=== PATIENT | male | born 1940 | race African-American/Black ===

== ENCOUNTER 2025-03-29 13:43 | Outpatient (AMB) | payer OTHER, MEDICARE, SELFPAY ==
--- NOTE | 2025-03-29 14:33 | A.OFFVIS_ITS ---
Intake Visit Reasons: ENP-Confusion Medication List - Last Reconciled 03/29/25 by Todd Fox MD docusate sodium 100 mg PO DAILY famotidine 20 mg PO BEDTIME fluticasone propionate 50 mcg/actuation (Flonase Allergy Relief) 1 spray intranasal DAILY ibuprofen 200 mg PO Q6H PRN HPI Comments Details: 85 yr generally healthy man with two episodes of transient memory loss and confusion lasting hours on 12/17/24 and 02/11/25. He woke up somewhat confused at 06:00 wanting to go to [facility] in the little later went to [employer] [place] some medicine from a pharmacy he drove then drove back and then had no recall that he had gone to the pharmacy. He also kept repeating himself. He acted somewhat spacey and then within 24 hours he was back to normal. He was seen in the emergency room had a negative CT scan of the head except for mild small bilateral hygromas and some atrophy which was age-related. 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 [facility] Medical History (Updated 03/29/25 @ 14:33 by Todd Fox MD) Fatty liver GERD (gastroesophageal reflux disease) Aortic regurgitation Review of Systems ENT Reports hearing loss Neuro Details: Two episodes of transient short-term memory loss and confusion Reports confusion Psych Reports confusion Physical Exam Const General: confusion Orientation/consciousness: confusion Neuro Other: ?Mini Mental Status Exam Level of Consciousness:?Alert.? Orientation:?Knows correct year, month, date, day and season.?Knows correct city, county and state. Knows correct location and floor.? Registration:?Able to register 3 objects.? Attention:?Serial 7's performed accurately.? Recall:?Able to recall 3 out of 3 objects.? Language:?Normal spontaneous speech, fluency, repetition, naming, comprehension, reading, and writing.? Total Score:?.? Neurological Abnormal neurological findings:??none.? Mental Status:?Alert and oriented X 3.?Normal attention, orientation, memory, and affect.? Cranial Nerves:?Pupils are equal, round and reactive to light. Fundoscopy shows normal disc bilaterally. External occular muscles are intact. Visual haque are full, no ptosis. Face is symmetrical, no facial weakness or droop. Facial sensations are normal. Tongue protrudes in midline. Palate elevates symmetrically. Shoulder shrugging is normal.? Motor Examination:?Normal muscle tone, bulk and strength.?No atrophy or fasciculations.?No drift of the extended upper extremities.?Deep tendon reflexes are 2+.?Plantars are flexor.? Motor Strength:? Proximal Muscles (out of 5):?5 Distal Muscles (out of 5):?5 Neck Flexors (out of 5):?5 Neck Extensors (out of 5):?5 Deltoid (out of 5):?5 Biceps (out of 5):?5 Triceps (out of 5):?5 Serratus Anterior (out of 5):?5 Wrist Extensors (out of 5):?5 APB (out of 5):?5 Finger Spread (out of 5):?5 Ileopsoas (out of 5):?5 Quadriceps (out of 5):?5 Hamstrings (out of 5):?5 Tibialis Anterior (out of 5):?5 Peronei (out of 5):?5 EDB (out of 5):?5 Gastrocnemius (out of 5):?5 Straight Leg Raising:?90 degrees.? Sensory Exam:?Normal light touch, temperature, pinprick, vibration and joint-position sensations.?Rhomberg sign is absent.? Coordination:?No ataxia,?no titubation,?wawkcy-[id number]-pvdo, pcxd-[id number]-rmmb test, and rapid alternating movements were normal.? Gait Exam:?Within normal limits.? Cerebellar Signs:?Umhmzy-nd-kuta and tvbf-ic-ngzb is normal.?No dysdiadochokinesia.? Extrapyramidal System:?No tremor or?rigidity, normal facial expressions.?No bradykinesia. No bradyphrenia. Normal arm swing and posture. No propulsion or retropulsion.? Speech:?Normal,?no dysphasia or dysarthria.? General Examination GENERAL APPEARANCE:??normal,?in no acute distress?,?normal,?in no acute distress.? HEAD:??normocephalic,?atraumatic.? EYES:??sclera non-icteric,?conjunctiva clear.? EARS:??auditory canal clear,?tympanic membrane intact, clear.? NOSE:??no lesions.? ORAL CAVITY:??gums normal,?mucosa moist,?no lesions.? THROAT:??clear.? NECK/THYROID:??no cervical lymphadenopathy,?thyroid normal,?neck supple, full range of motion,?no carotid bruit.? SKIN:??no rashes,?no significant birthmarks.? HEART:??S1, S2 normal,?no murmurs?,?S1, S2 normal,?no murmurs.? LUNGS:??clear anteriorly and posteriorly?,?clear anteriorly and posteriorly.? CHEST:??no gross rib deformity,?clear to auscultation.? BACK:??normal exam of spine.? MUSCULOSKELETAL:??normal.? EXTREMITIES:??no edema?,?no edema.? PERIPHERAL PULSES:??normal.? PSYCH:??alert, oriented,?cognitive function intact,?cooperative with exam?,?alert, oriented,?cognitive function intact,?cooperative with exam.? General: confusion Assessment & Plan Assessment & Plan (1) Transient global amnesia: Code(s): G45.4 - Transient global amnesia Category: Medical Plan MRI brain , EEG Orders: Orders MR head/brain wo con 3 Weeks G45.4 - Transient global amnesia EEG electroencephalogram Today G45.4 - Transient global amnesia Coding Level of Care Code New Pt Level 5 (63145) Diagnoses Transient global amnesia G45.4
--- OUTSIDE RECORDS SUMMARY | 2025-03-29 15:02 | XMS_ITS ---
Author Name [facility] Organization Unknown Care Team Organization Name Specialty Phone Email Start Date End Da te [facility] 02/16/2025 [facility] 05/07/2022 02/16/2024
--- OUTSIDE RECORDS SUMMARY | 2025-03-29 15:02 | XMS_ITS | Clinical Summary ---
Author Organization [address] [facility] Address [address] [place] [address] Phone Care Team Providers Care Cyber Defense Forensics Analyst Name Role Phone Meg Monet MD Primary Care Provider [phone] Allergies Active Allergy Reactions Criticality Noted Date Comments Oxycodone Other 05/11/2021 Constipation Pollen Extracts 07/24/2015 Tramadol Itching 04/19/2021 Medications fluticasone propionate (FLONASE) 50 mcg/actuation nasal spray SPRAY 2 SPRAYS BY NASAL ROUTE DAILY 10/22/2022 Active ibuprofen (ADVIL,MOTRIN) 200 mg tablet Take 200 mg by mouth every 6 hours as needed. Active DOCUSATE SODIUM ORAL Take by mouth daily. Active phenyleph-shark myranda oil-mo-pet ointment Insert into the rectum 3 times daily. 03/18/2023 Active famotidine (PEPCID) 20 mg tablet TAKE 1 TABLET BY MOUTH TWICE DAILY 180 tablet 06/18/2024 Active amoxicillin-cla vulanate (AUGMENTIN) 875-125 mg per tablet Take 1 tablet by mouth 2 (two) times a day for 7 days. 14 each 03/21/2025 Active Problems Problem Noted Date Diagnosed Date CKD (chronic kidney disease) stage 2, GFR 60-89 ml/min 07/13/2019 Abnormal TSH 10/18/2014 Overview (03/25/2024): normal T4 Hyperglycemia 10/18/2014 Syncope 04/14/2014 Overview (03/25/2024): Cardiac study (-), CT (-), believed to be vasovagal with some level of dehydration Aortic regurgitation 08/13/2013 Overview (03/25/2024): mild to moderarte on ECHO for evaluation for syncope CKD (chronic kidney disease) stage 3, GFR 30-59 ml/min ([facility] V24, [facility] V28) 04/09/2013 Overview (03/25/2024): GFR< 60 / 58 on04/02/13 Diverticulitis of colon without hemorrhage 04/09 Overview (03/25/2024): Colonoscopy 08/26/12 Fatty liver 06/05/2012 Overview (03/25/2024): On imaging studies during hospitalization for atypical chest pain with nausea vomiting in [place] Leukopenia 10/29/2010 Seasonal allergies 12/12/2009 Benign neoplasm of colon 09/02/2005 Overview (03/25/2024): Tubular adenoma in 2009 External hemorrhoids 09/02/2005 Overview (03/25/2024): IMO update Esophageal reflux 09/02/2005 Peyronie's disease 09/02/2005 Tinnitus 09/02/2005 Overview (03/25/2024): Bilateral, left>right, on going, CT brain (-) 05/2013 for evaluation of syncope IMO update Encounters Date Type Department Care Team Description 03/21/2025 10:00 AM EDT Office Visit [facility] [address] [place] [place] [address] Santi Rogel, BANDER OPERATOR Acute otitis media, unspecified otitis media type (Primary Dx) 02/24/2025 Telephone Adult Medicine [address] [phone] Meg Monet MD 01/04/2025 Telephone Adult Medicine [address] [phone] Rosangela Ash NP 12/30/2024 8:30 AM EDT Office Visit Adult Medicine [address] [phone] Rosangela Ash NP Confusion (Primary Dx); Other hereditary cerebrovascular disease; Memory changes; Encounter for examination following treatment at hospital; Stage 3 chronic kidney disease, unspecified whether stage 3a or 3b CKD ([facility] V24, [facility] V28); Encounter for screening for cardiovascular disorders from Last 3 Months Immunizations Immunization Administration Dates Next Due Influenza Quadravalent, 0.5m l (Fluzone High-dose) 65yo and older 03/02/2024 Influenza Quadravalent, MDCK , 0.5ml, preservative free (Flucelvax) 6mo and older 05/20/2018 Influenza Quadravalent, MDCK , 0.5ml, with preservative (Flucelvax) 6mo and older 06/02/2017 Influenza trivalent, 0.5mL ( Fluzone High-dose) 65yo and older 04/19/2021 Influenza trivalent, with pr eservative (Fluzone; Afluria) 6mo and older 04/25/2016,04/14/2014,04/02/2013,05/01,04/27/2010,04/04/2008 Moderna SARS-CoV-2 COVID-19, mRNA, LNP-S, preservative free 11/04/2022,04/29/2022 Pfizer SARS-CoV-2 COVID-19, mRNA, LNP-S, preservative free 03/02/2024 Pneumococcal polysaccharide 23 valent (Pneumovax 23) 2yo and older 11/07/2008 RSV, bivalent, protein subun it RSVpreF, 0.5mL, Preservative Free (ABRYSVO) 60yo and older or 32 through 36 wks of 03/02/2024 Td Tetanus diptheria (Tdvax) 7yo and older 11/07/2008 Surgical History Surgery Date Site/Laterality Comments COLONOSCOPY 2005 PROCEDURE: HISTORICAL COLONOSCOPY; COMMENT: follow up 3 years; colonic adenoma COLONOSCOPY 06/20/09 PROCEDURE: [place] COLONOSCOPY STOMA DX INCLUDING COLLJ SPEC SPX; COMMENT: adenoma and hemorrhoids; repeat in three years COLONOSCOPY 08/26/12 PROCEDURE: [place] COLONOSCOPY STOMA DX INCLUDING COLLJ SPEC SPX; COMMENT: tics; repeat in 5 yrs COLONOSCOPY W/ BIOPSIES 02/27/2018 PROCEDURE: [place] COLONOSCOPY W/BIOPSY SINGLE/MULTIPLE; COMMENT: adenma and hyperplastic polyps; repeat in 5 years. Medical History Medical History Date Comments Peyronie's disease 09/02/2005 DX:Peyronie's disease Unspecified tinnitus 09/02/2005 DX:Unspecif ied tinnitus Benign neoplasm of colon 09/02/2005 DX:Jonas gn neoplasm of colon; COMMENT: 2000 Esophageal reflux 09/02/2005 DX:Esophageal reflux External hemorrhoids without mention of complication 09/02/2005 DX:External hemorrhoids with out mention of complication Fatty liver 06/05/2012 DX:Fatty liver Aortic regurgitation 08/13/2013 DX:Aortic r egurgitation Syncope 04/14/2014 DX:Syncope; COMM ENT: Cardiac study (-), CT (-), believed to be vasovagal with some level of dehydration Hyperglycemia 10/18/2014 DX:Hyperglycemia Family History Medical History Relation Name Comments No Known Problems Aunt No Known Problems Brother Other: at age 88 Father No Known Problems Maternal Grandfather No Known Problems Maternal Grandmother Heart attack Mother [place] at age 67 No Known Problems Other No Known Problems Paternal Grandfather No Known Problems Paternal Grandmother No Known Problems Sister 1 No Known Problems Sister 2 No Known Problems Sister 3 No Known Problems Sister 4 Other: lymph cancer Sister 5 Other: gastric cancer Sister 6 Blindness Uncle Cataracts Neg Hx Glaucoma Neg Hx Macular degeneration Neg Hx Strabismus Neg Hx Relation Name Status Comments Aunt Brother Alive x1 Father DIABETES with a mputation Maternal Grandfather Maternal Grandmother Mother MYOCARDIAL INFA RCTION, DIABETES Other Paternal Grandfather Paternal Grandmother Sister 1 LYMPHOMA Sister 2 LYMPHOMA Sister 3 GASTRIC CANCER Sister 4 Alive x4; 1 with DMII Sister 5 Sister 6 Uncle Social History Tobacco Use Types Packs/Day Years Used Date Smoking Tobacco: Former Cigarettes 2 8.2 0 06/30/1962 - 09/02/1970 Smokeless Tobacco: Never Tobacco Cessation:Counseling Given: Not Answered Alcohol Use Standard Drinks/Week Comments Yes 0 (1 standard drink = 0.6 oz pur e alcohol) Housing Instability Answer Date Recorde d Are you worried that in the next 2 months you may not have stable housing? No 12/29/2024 Food Access & Nutrition Answer Date Rec orded Do you have access to a vari ety of food including fruits and vegetables? Yes 12/29/2024 Access to Healthcare Answer Date Record ed Within the last 3 months, ho w many times did you visit the emergency department for your medical care? 1 12/29/2024 Health Literacy Answer Date Recorded How often do you need to hav e someone help you when you read instructions, pamphlets, or other written material from your doctor or pharmacy? Rarely 12/29/2024 Caregiver: How often do you need to have someone help you when you read instructions, pamphlets, or other written material from your doctor or pharmacy? Not on file 12/29/2024 Financial Risk Answer Date Recorded How hard is it for you to pa y for the very basics like food, housing, medical care, and air conditioning / heating? Not very hard 12/29/2024 Transportation Answer Date Recorded Has the lack of transportati on kept you from meetings, work, or from getting things needed for daily living? No Has the lack of transportati on kept you from medical appointments or from getting medications? No 12/29/2024 Social Isolation Answer Date Recorded How often do you feel lonely or isolated from th ose around you? Rarely 12/29/2024 Food Risk Answer Date Recorded Within the past 12 months we worried whether our food would run out before we got money to buy more. Never true 12/29/2024 Within the past 12 months th e food we bought just didn't last and we didn't have money to get more. Never true 12/29/2024 Dependent Care Answer Date Recorded Do you need help finding or paying for care for your loved ones. For example, child daycare worker or elderly care for an older adult? No 12/29/2024 Education Answer Date Recorded Do you think completing more education or training, like finishing a GED, going to college, or learning a trade, would be helpful for you? No 12/29/2024 Employment and Income Answer Date Recor ded During the last four weeks, have you been actively looking for work? No 12/29/2024 Living Situation Answer Date Recorded What is your living situation? Unrecognized valu e 12/29/2024 Interpersonal Safety Answer Date Record ed Physical Abuse Unrecognized value 05/10/2024 Verbal Abuse Unrecognized value 05/10/2024 Sex and Gender Information Value Date Recorded Sex Assigned at Male 05/07/2024 3:35 PM EST Legal Sex Male 11:54 PM EST Gender Identity Male 05/07/2024 3:35 PM EST Sexual Orientation Straight 05/07/2024 3: 35 PM EST Obstetrics History Last Filed Vital Signs Vital Sign Reading Time Taken Comments Blood Pressure 142/69 03/21/2025 9:42 AM EDT Pulse 64 03/21/2025 9:42 AM EDT Temperature 36.6 C (97.9 F) 03/21/2025 9:42 AM EDT Respiratory Rate 14 12/30/2024 8:13 AM EDT Oxygen Saturation 98% 03/21/2025 9:42 AM EDT Inhaled Oxygen Concentration - - Weight 80.3 kg (177 lb) 12/30/2024 8:13 AM EDT Height 177.8 cm (5' 10 ) 12/17/2024 1:24 PM EDT Body Mass Index 25.4 12/17/2024 1:24 PM EDT Plan of Treatment Upcoming Encounters Date Type Department Care Team (Late st Contact Info) Description 04/04/2025 4:15 PM EDT Office Visit Adult Medicine [address] [phone] Meg Monet MD [address] [place] [address] Health Maintenance Due Date Last Done Comments IPV Vaccines (2 of 3 - Adult catch-up series) 03/27/2009 02/27/2009 Pneumococcal Vaccine: 50+ Years (2 of 2 - PCV) 11/07/2009 11/07/2008 DTaP,Tdap,and Td Vaccines (2 - Td or Tdap) 11/07/2018 11/07/2008, 11/07/2008 Zoster Vaccines (2 of 2) 06/17/2020 04/22/2020 Medicare Annual Wellness Visit 09/03/2024 09/04/2023 COVID-19 Vaccine ( season) 2025 03/02/2024, 09/12/2023, 04/22/2023, Additional history exists Influenza Vaccine (#1) 2025 , 04/22/2023, 04/29/2022, Additional history exists Falls Risk Assessment 05/10/2025 05/10/2024, 024 Social Influencers of Health Screening 12/29/2025 12/29/2024 Cholesterol Screening (Lipid Panel) 12/30/2029 12/30/2024, 10/02/2023 Hepatitis A Vaccines Aged Out 09/13/2009, 03/27/2009, 02/27/2009 No longer eligible based on patient's age to complete this topic Hepatitis B Vaccines Completed 09/13/2009, 03/27/2009, 02/27/2009 RSV Immunization Adult Patients Completed 03/02/2024 Colorectal Cancer Screening: Colonoscopy Discontinued 05/10/2024, 02/27/2018 Depression Screening Completed 12/29/2024, 09/04/19 HIB Vaccines Aged Out No longer eligi ble based on patient's age to complete this topic HPV Vaccines Aged Out No longer eligi ble based on patient's age to complete this topic MMR Vaccines Aged Out No longer eligi ble based on patient's age to complete this topic Meningococcal ACWY Vaccine Aged Out N o longer eligible based on patient's age to complete this topic Meningococcal B Vaccine Aged Out No l onger eligible based on patient's age to complete this topic RSV Immunization Patients Under 20 months Aged Out No longer eligible based on patient's age to complete this topic Varicella Vaccines Aged Out No longer eligible based on patient's age to complete this topic Medical Devices Implanted Type Area Ship Fitter Device Identifier Shelf Expiration Date Model / Serial / Lot Screws Left: Leg Procedures Procedure Name Priority Date/Time Associated Diagnosis Comments TRIIODOTHYRONINE FREE Routine 02/24/2025 1:43 PM EDT Elevated TSH FREE THYROXINE WITH REFLEX TO FREE TRIIODOTHYRONINE Routine 02/24/2025 1:43 PM EDT Elevated TSH THYROID STIMULATING HORMONE WITH REFLEX TO FREE T4 AND FREE T3 Routine 02/24/2025 1:43 PM EDT Elevated TSH TRIIODOTHYRONINE FREE Routine 12/30/2024 9:22 AM EDT Confusion Memory changes Encounter for examination following treatment at hospital Stage 3 chronic kidney disease, unspecified whether stage 3a or 3b CKD ([facility] V24, [facility] V28) FREE THYROXINE WITH REFLEX TO FREE TRIIODOTHYRONINE Routine 12/30/2024 9:22 AM EDT Confusion Memory changes Encounter for examination following treatment at hospital Stage 3 chronic kidney disease, unspecified whether stage 3a or 3b CKD ([facility] V24, [facility] V28) HOMOCYSTEINE, SERUM Routine 12/30/2024 9 :22 AM EDT Confusion Memory changes Encounter for examination following treatment at hospital Stage 3 chronic kidney disease, unspecified whether stage 3a or 3b CKD ([facility] V24, [facility] V28) Other hereditary cerebrovascular disease THYROID STIMULATING HORMONE WITH REFLEX TO FREE T4 AND FREE T3 Routine 12/30/2024 9:22 AM EDT Confusion Memory changes Encounter for examination following treatment at hospital Stage 3 chronic kidney disease, unspecified whether stage 3a or 3b CKD ([facility] V24, [facility] V28) VITAMIN D 1,25 DIHYDROXY Routine 12/30/2024 9:22 AM EDT Confusion Memory changes Encounter for examination following treatment at hospital Stage 3 chronic kidney disease, unspecified whether stage 3a or 3b CKD ([facility] V24, [facility] V28) SEDIMENTATION RATE Routine 12/30/2024 9: 22 AM EDT Confusion Memory changes Encounter for examination following treatment at hospital Stage 3 chronic kidney disease, unspecified whether stage 3a or 3b CKD ([facility] V24, [facility] V28) TREPONEMA PALLIDUM ANTIBODY WITH REFLEX TO RPR AND PARTICLE AGGLUTINATION Routine 12/30/2024 9:22 AM EDT Confusion Memory changes Encounter for examination following treatment at hospital Stage 3 chronic kidney disease, unspecified whether stage 3a or 3b CKD ([facility] V24, [facility] V28) FOLATE Routine 12/30/2024 9:22 AM EDT Confusion Memory changes Encounter for examination following treatment at hospital Stage 3 chronic kidney disease, unspecified whether stage 3a or 3b CKD ([facility] V24, [facility] V28) VITAMIN B12 Routine 12/30/2024 9:22 AM EDT Confusion Memory changes Encounter for examination following treatment at hospital Stage 3 chronic kidney disease, unspecified whether stage 3a or 3b CKD ([facility] V24, [facility] V28) LIPID PANEL WITH REFLEX TO DIRECT LDL Routine 12/30/2024 9:22 AM EDT Encounter for screening for cardiovascular disorders COLONOSCOPY Routine 05/10/2024 2:15 PM EST Rectal bleeding FALLS RISK ASSESSMENT Routine 03/08/2024 DEPRESSION SCREENING Routine 09/04/2023 from Last 3 Months or Most Recently Relevant to Health Maintenance Results * (ABNORMAL) Thyroid stimulating hormone with reflex to free t4 and free t3 (02/24/2025 1:43 PM EDT) Only the most recent of2 resultswithin the time period is included. TSH 4.05(H) 0.40 - 4.00 mcIU/mL LAB CHEMISTRY METHOD 02/24/2025 5:18 PM EDT [facility] Blood Venous blood specimen / Unknown Venipuncture / Unknown 02/24/2025 1:43 PM EDT 02/24/2025 1:43 PM EDT us Rosangela Ash BANDER OPERATOR LAB BLOOD ORDERABLES Final R esult [facility] [address] [place] [address], [place] [phone] * Free thyroxine with reflex to free triiodothyronine (02/24/2025 1:43 PM EDT) Only the most recent of2 resultswithin the time period is included. Free T4 0.92 0.70 - 1.80 ng/dL LAB CHEMISTRY METHOD 02/24/2025 6:20 PM EDT [facility] Blood Venous blood specimen / Unknown Venipuncture / Unknown 02/24/2025 1:43 PM EDT 02/24/2025 1:43 PM EDT Rosangela Ash BANDER OPERATOR LAB BLOOD ORDERABLES Final R esult Performing Organization Address [facility] Co de Phone Number [facility] [address] [place] [address], [place] [phone] * Triiodothyronine free (02/24/2025 1:43 PM EDT) Only the most recent of2 resultswithin the time period is included. T3, Free 271 230 - 420 pcg/dL LAB CHEMISTRY METHOD 02/24/2025 7:26 PM EDT [facility] Blood Venous blood specimen / Unknown Venipuncture / Unknown 02/24/2025 1:43 PM EDT 02/24/2025 1:43 PM EDT Rosangela Ash BANDER OPERATOR LAB BLOOD ORDERABLES Final R esult Performing Organization Address City/[facility]/ZIP Co de Phone Number [facility] [address] [place] [address], [place] [phone] * Treponema pallidum antibody with reflex to RPR and particle agglutination (12/30/2024 9:22 AM EDT) Pathologist [facility] T. Pallidum Antibodies Negative Negative LAB CHEMISTRY METHOD 12/30/2024 2:25 PM EDT [facility] Blood Venous blood specimen / Unknown Venipuncture / Unknown 12/30/2024 9:22 AM EDT 12/30/2024 9:22 AM EDT Rosangela Ash BANDER OPERATOR LAB BLOOD ORDERABLES Final R esult [facility] [address] [place] [address], [place] [phone] * (ABNORMAL) Lipid panel with reflex to direct LDL (12/30/2024 9:22 AM EDT) Cholesterol 189 0 - 200 mg/dL LAB CHEMISTRY METHOD 12/30/2024 1:44 PM EDT [facility] Triglycerides 104 0 - 150 mg/dL LAB CHEMISTRY METHOD 12/30/2024 1:44 PM EDT [facility] HDL 49 >=40 mg/dL LAB CHEMISTRY METHOD 12/30/2024 1:44 PM EDT [facility] LDL Calculated 119(H) 0 - 100 mg/dL LAB CHEMISTRY METHOD 12/30/2024 1:44 PM EDT [facility] VLDL Cholesterol César 20.8 mg/dL LAB CHEMISTRY METHOD 12/30/2024 1:44 PM EDT [facility] Non HDL Chol. (LDL+VLDL) 140 <145 mg/dL LAB CHEMISTRY METHOD 12/30/2024 1:44 PM EDT [facility] Chol/HDL Ratio 3.9 0.0 - 4.4 LAB CHEMISTRY METHOD 12/30/2024 1:44 PM EDT [facility] Blood Venous blood specimen / Unknown Venipuncture / Unknown 12/30/2024 9:22 AM EDT 12/30/2024 9:22 AM EDT Rosangela Ash BANDER OPERATOR LAB BLOOD ORDERABLES Final R esult Performing Organization Address City/[facility]/ZIP Co de Phone Number [facility] [address] [place] [address], [place] [phone] * Vitamin D 1,25 dihydroxy (12/30/2024 9:22 AM EDT) Vitamin D, 1, 25-Dihydroxy 40 20 - 79 pg/mL 01/03/2025 8:08 PM EDT [facility] Comment: Vitamin D 1, 25 dihydroxy levels should be primarily used to assess Vitamin D status in patients with renal disease and hypercalcemia. Vitamin D 1,25-dihydroxy levels are generally less than 5 pg/mL in end stage renal disease patients. The preferred initial test for assessing Vitamin D status in the general population is Vitamin D 25-hydroxy (VITD). Test performed at [facility], [address] [place] [address] Nolvia Fontenot MD, PhD - Bar Examiner Blood Venous blood specimen / Unknown Venipuncture / Unknown 12/30/2024 9:22 AM EDT 12/30/2024 9:22 AM EDT Rosangela Ash BANDER OPERATOR LAB BLOOD ORDERABLES Final R esult Performing Organization Address [facility]/ZIP Co de Phone Number [facility] [address] [place] [address] * Sedimentation rate (12/30/2024 9:22 AM EDT) Pathologist [facility] Sed Rate 4 0 - 20 mm/hr LAB HEMETOLOGY METHOD 12/30/2024 10:25 AM EDT [facility] Blood Venous blood specimen / Unknown Venipuncture / Unknown 12/30/2024 9:22 AM EDT 12/30/2024 9:22 AM EDT Rosangela Ash BANDER OPERATOR LAB BLOOD ORDERABLES Final R esult [facility] [address] [place] [address], [place] [phone] * Homocysteine, total (12/30/2024 9:22 AM EDT) [facility] Homocysteine 8.2 3.2 - 10.7 mcmol/L LAB CHEMISTRY METHOD 12/30/2024 1:44 PM EDT [facility] Blood Venous blood specimen / Unknown Venipuncture / Unknown 12/30/2024 9:22 AM EDT 12/30/2024 9:22 AM EDT Rosangela Ash BANDER OPERATOR LAB BLOOD ORDERABLES Final R esult Performing Organization Address City/[facility]/ZIP Co de Phone Number [facility] [address] [place] [address], [place] [phone] * (ABNORMAL) Folate (12/30/2024 9:22 AM EDT) [facility] Folate >20.0(H) 2.8 - 17.0 ng/ml LAB CHEMISTRY METHOD 12/30/2024 1:44 PM EDT [facility] Blood Venous blood specimen / Unknown Venipuncture / Unknown 12/30/2024 9:22 AM EDT 12/30/2024 9:22 AM EDT Rosangela Ash BANDER OPERATOR LAB BLOOD ORDERABLES Final R esult [facility] [address] [place] [address], [place] [phone] * (ABNORMAL) Vitamin B12 (12/30/2024 9:22 AM EDT) [facility] Vitamin B-12 1,014(H) 250 - 900 pcg/mL LAB CHEMISTRY METHOD 12/30/2024 1:44 PM EDT [facility] Blood Venous blood specimen / Unknown Venipuncture / Unknown 12/30/2024 9:22 AM EDT 12/30/2024 9:22 AM EDT us Rosangela Ash BANDER OPERATOR LAB BLOOD ORDERABLES Final R esult [facility] [address] [place] [address], [place] [phone] * COLONOSCOPY Anesthesia - MAC; [facility] ENDOSCOPY (05/10/2024 2:15 PM EST) Anatomical Region Laterality Modality Other 05/10/2024 2:02 PM EST Narrative 05/10/2024 2:17 PM EST [facility] GI Patient Name: Heriberto Maldonado Procedure Date: 05/10/2024 2:02 PM Date of : 1940 Age: 84 Gender: Male Note Status: Finalized Attending MD: Joey Love MD, Procedure Date No Time: 05/10/2024 Procedure: Colonoscopy Indications: Screening for colorectal malignant neoplasm Providers: Joey Love MD Referring MD: Joey Love MD Medicines: Propofol per Anesthesia Complications: No immediate complications. Estimated Blood Loss: Estimated blood loss: none. Procedure: Pre-Anesthesia Assessment: - ASA Grade Assessment: II - A patient with mild systemic disease. After I obtained informed consent, the scope was passed under direct vision. Throughout the procedure, the patient's blood pressure, pulse, and oxygen saturations were monitored continuously.The Colonoscope was introduced through the anus and advanced to the cecum, identified by appendiceal orifice and ileocecal valve. The colonoscopy was performed without difficulty. The patient tolerated the procedure well. The quality of the bowel preparation was good. Findings: The perianal and digital rectal examinations were normal. Internal hemorrhoids were found during endoscopy. The hemorrhoids were Grade I (internal hemorrhoids that do not prolapse). A few diverticula were found in the sigmoid colon. Impression: - Internal hemorrhoids. - Diverticulosis in the sigmoid colon. - No specimens collected. Recommendation: - Repeat colonoscopy Deferred due to age. - Use fiber, for example Citrucel, Fibercon, Konsyl or Metamucil. Procedure Code(s): --- Professional --- G0121, Colorectal cancer screening; colonoscopy on individual not meeting criteria for high risk Diagnosis Code(s): --- Professional --- Z12.11, Encounter for screening for malignant neoplasm of colon K64.0, First degree hemorrhoids K57.30, Diverticulosis of large intestine without perforation or abscess without bleeding CPT copyright 2020 [employer]. All rights reserved. The codes documented in this report are preliminary and upon apprentice instrument technician review may be revised to meet current compliance requirements. Joey Love MD Joey Love MD 05/10/2024 2:17:37 PM This report has been signed electronically.Joey Love MD Number of Addenda: 0 Note Initiated On: 05/10/2024 2:02 PM Scope In: Scope Out: Endoscopy Department at [facility] - [address] [place] [phone] Procedure Note Joey Love MD - 05/10/2024 [facility] GI Patient Name: Heriberto Maldonado Procedure Date: 05/10/2024 2:02 PM Date of : 1940 Age: 84 Gender: Male Note Status: Finalized Attending MD: Joey Love MD, Procedure Date No Time: 05/10/2024 Procedure: Colonoscopy Indications: Screening for colorectal malignant neoplasm Providers: Joey Love MD Referring MD: Joey Love MD Medicines: Propofol per Anesthesia Complications: No immediate complications. Estimated Blood Loss: Estimated blood loss: none. Procedure: Pre-Anesthesia Assessment: - ASA Grade Assessment: II - A patient with mild systemic disease. After I obtained informed consent, the scope was passed under direct vision. Throughout theprocedure, the patient's blood pressure, pulse, and oxygen saturations were monitored continuously.The Colonoscope was introduced through the anus and advanced to the cecum, identified by appendiceal orifice and ileocecal valve. The colonoscopy was performed without difficulty. The patient tolerated the procedure well. The quality of the bowel preparation was good. Findings: The perianal and digital rectal examinations were normal. Internal hemorrhoids were found during endoscopy.The hemorrhoids were Grade I (internal hemorrhoids thatdo not prolapse). A few diverticula were found in the sigmoidcolon. Impression: - Internal hemorrhoids. - Diverticulosis in the sigmoid colon. - No specimens collected. Recommendation: - Repeat colonoscopy Deferred due to age. - Use fiber, for example Citrucel, Fibercon, Konsylor Metamucil. Procedure Code(s): --- Professional --- G0121, Colorectal cancer screening; colonoscopy on individual not meeting criteria for high risk Diagnosis Code(s): --- Professional --- Z12.11, Encounter for screening for malignantneoplasm of colon K64.0, First degree hemorrhoids K57.30, Diverticulosis of large intestine without perforation or abscess without bleeding CPT copyright 2020 [employer] [place] [employer]. All rights reserved. The codes documented in this report are preliminary and upon apprentice instrument technician reviewmay be revised to meet current compliance requirements. Joey Love MD Joey Love MD 05/10/2024 2:17:37 PM This report has been signed electronically.Joey Love MD Number of Addenda: 0 Note Initiated On: 05/10/2024 2:02 PM Scope In: Scope Out: Endoscopy Department at [address] [phone] Joey Love MD GI~PROCEDURE ORDERABLES Final Re sult * Falls Risk Assessment (03/08/2024) Falls Risk Assessment abstracted Historical Provider HEALTH MAINTENANCE Final Result * Depression Screening (09/04/2023) Depression Screening abstracted Result [facility] Historical Provider HEALTH MAINTENANCE Final Result from Last 3 Months or Most Recently Relevant to Health Maintenance Insurance [facility] [place] [id number] Care Teams Cyber Defense Forensics Analyst Relationship Specialty Start Date End Date Meg Monet MD [address] [place] [address] [place] [id number] PCP - General 02/13/01
== END 2025-03-29 14:41 | disposition home or self-care (01) ==
LOC: HO.HSM 13:44
PROVIDERS: PCP Internal Medicine; Visit Provider Psychiatry & Neurology Neurology
DX: G45.4 Transient global amnesia (principal)
CPT/HCPCS: 99203

== ENCOUNTER 2025-04-18 08:24 | Outpatient (REF) | payer MEDICARE, OTHER, SELFPAY ==
--- OUTSIDE RECORDS SUMMARY | 2025-04-18 08:47 | XMS_ITS | Clinical Summary ---
Author Organization [facility] Address [address] [place] [address] Phone Care Team Providers Care Business Lawyer Name Role Phone Meg Monet MD Primary Care Provider [phone] Allergies Active Allergy Reactions Criticality Noted Date Comments Oxycodone Other 05/11/2021 Constipation Pollen Extracts 07/24/2015 Tramadol Itching 04/19/2021 Medications fluticasone propionate (FLONASE) 50 mcg/actuation nasal spray SPRAY 2 SPRAYS BY NASAL ROUTE DAILY 3 Active ibuprofen (ADVIL,MOTRIN) 200 mg tablet Take 200 mg by mouth every 6 hours as needed. Active DOCUSATE SODIUM ORAL Take by mouth daily. Active phenyleph-shark myranda oil-mo-pet ointment Insert into the rectum 3 times daily. 3 Active famotidine (PEPCID) 20 mg tablet TAKE 1 TABLET BY MOUTH TWICE DAILY 180 tablet 4 Active Additional Information Patient not taking.Reported on 04/04/2025 menthol-zinc oxide (CALMOSEPTINE) 0.44-20.6 % ointment Apply 1 Application topically if needed for irritation. Active lidocaine (LIDODERM) 5 % patch Apply 1 patch topically 1 (one) time each day. Remove & discard patch within 12 hours or as directed by MD. Active amoxicillin-cla vulanate (AUGMENTIN) 875-125 mg per tablet Take 1 tablet by mouth 2 (two) times a day for 7 days. 14 each 03/28/20 25 Additional Information Patient not taking.Reported on 04/04/2025 Active Problems Problem Noted Date Diagnosed Date [...] kidney disease) stage 3, GFR 30-59 ml/min (CMS/HCC V24, CMS/HCC V28) 04/09/2013 Overview (03/25/2024): GFR< 60 / 58 on04/02/13 Diverticulitis of colon without hemorrhage 04/09 Overview (03/25/2024): Colonoscopy 08/26/12 Fatty liver 06/05/2012 Overview (03/25/2024): On imaging studies during hospitalization for atypical chest pain with nausea vomiting in [place] Leukopenia 10/29/2010 Seasonal allergies 12/12/2009 Benign neoplasm of colon 09/02/2005 Overview (03/25/2024): Tubular adenoma in 2009 External hemorrhoids 09/02/2005 Overview (03/25/2024): IMO update Esophageal reflux 09/02/2005 Peyronie's disease 09/02/2005 Tinnitus 09/02/2005 Overview (03/25/2024): Bilateral, left>right, on going, CT brain (-) 05/2013 for evaluation of syncope IMO update Encounters Date Type Department Care Team Description 04/07/2025 Telephone Adult Medicine [address] [phone] Meg Monet MD 04/04/2025 4:15 PM EDT Office Visit [address] [phone] Meg Monet MD Memory lapses (Primary Dx); Need for prophylactic vaccination and inoculation against influenza; Abnormal TSH; CKD (chronic kidney disease) stage 2, GFR 60-89 ml/min; Confusion; Amnesia 03/21/2025 10:00 AM EDT Office Visit [facility] [address] [phone] Santi Rogel, SENIOR PACKAGING ENGINEER Acute otitis media, unspecified otitis media type (Primary Dx) 02/24/2025 Telephone Adult Medicine [address] [phone] Meg Monet MD from Last 3 Months Immunizations Immunization Administration Dates Next Due Influenza Quadravalent, 0.5m l (Fluzone High-dose) 65yo and older 03/02/2024 Influenza Quadravalent, MDCK , 0.5ml, preservative free (Flucelvax) 6mo and older 05/20/2018 Influenza Quadravalent, MDCK , 0.5ml, with preservative (Flucelvax) 6mo and older 06/02/2017 Influenza trivalent, 0.5mL ( Fluad) 65yo and older 04/04/2025 Influenza trivalent, 0.5mL ( Fluzone High-dose) 65yo and older 04/19/2021 Influenza trivalent, with pr eservative (Fluzone; Afluria) 6mo and older 04/25/2016,04/14/2014,04/02/2013,05/01,04/27/2010,04/04/2008 Moderna SARS-CoV-2 COVID-19, mRNA, LNP-S, preservative free 11/04/2022,04/29/2022 Pfizer SARS-CoV-2 COVID-19, mRNA, LNP-S, preservative free 03/02/2024 Pneumococcal polysaccharide 23 valent (Pneumovax 23) 2yo and older 11/07/2008 RSV, bivalent, protein subun it RSVpreF, 0.5mL, Preservative Free (ABRYSVO) 50yo and older or 32 through 36 wks of 03/02/2024 Td Tetanus diptheria (Tdvax) 7yo and older 11/07/2008 Surgical History Surgery Date Site/Laterality Comments COLONOSCOPY 2005 PROCEDURE: HISTORICAL COLONOSCOPY; COMMENT: follow up 3 years; colonic adenoma COLONOSCOPY 06/20/09 PROCEDURE: CT COLONOSCOPY STOMA DX INCLUDING COLLJ SPEC SPX; COMMENT: adenoma and hemorrhoids; repeat in three years COLONOSCOPY 08/26/12 PROCEDURE: CT COLONOSCOPY STOMA DX INCLUDING COLLJ SPEC SPX; COMMENT: tics; repeat in 5 yrs COLONOSCOPY W/ BIOPSIES 02/27/2018 PROCEDURE: CT COLONOSCOPY W/BIOPSY SINGLE/MULTIPLE; COMMENT: adenma and hyperplastic [...] Known Problems Maternal Grandmother Heart attack Mother [place] at age 67 No Known Problems Other [...] Record ed Within the last 3 months, keon pruett many times did you visit the emergency [...] care for your loved ones. For example, early childhood lead teacher or elderly care for an older adult? [...] Sign Reading Time Taken Comments Blood Pressure 138/88 04/04/2025 4:30 PM EDT Pulse 80 04/04/2025 4:30 PM EDT Temperature 36.6 C (97.9 F) 04/04/2025 4:30 PM EDT Respiratory Rate 16 04/04/2025 4:30 PM EDT Oxygen Saturation 98% 03/21/2025 9:42 AM EDT Inhaled Oxygen Concentration - - Weight 79.4 kg (175 lb) 04/04/2025 4:30 PM EDT Height 177.8 cm (5' 10 ) 04/04/2025 4:30 PM EDT Body Mass Index 25.11 04/04/2025 4:30 PM EDT Plan of Treatment Upcoming Encounters Date Type Department Care Team (Late st Contact Info) Description 06/15/2025 11:00 AM EST Office Visit Adult Medicine [facility] [place] [address] [place] [address] Meg Monet MD [address] [place] [address] Health Maintenance Due Date Last Done Comments IPV Vaccines (2 of 3 - Adult catch-up series) 03/27/2009 02/27/2009 Pneumococcal Vaccine: 50+ Years (2 of 2 - PCV) 11/07/2009 11/07/2008 DTaP,Tdap,and Td Vaccines (2 - Td or Tdap) 11/07/2018 11/07/2008 Zoster Vaccines (2 of 2) 06/17/2020 04/22/2020 Medicare Annual Wellness Visit 09/03/2024 09/04/2023 COVID-19 Vaccine ( season) 2025 03/02/2024, 09/12/2023, 04/22/2023, Additional history exists Falls Risk Assessment 05/10/2025 [...] 05/10/2024, 02/27/2018 Depression Screening Completed 12/29/2024, 09/04/19 Influenza Vaccine Completed 04/04/2025, , 04/22/2023, Additional history exists HIB Vaccines Aged Out No longer eligi [...] this topic Medical Devices Implanted Type Area Managing Jeweler Device Identifier Shelf Expiration Date Model / Serial / Lot Screws Left: Leg Procedures Procedure Name Priority Date/Time Associated Diagnosis Comments TRIIODOTHYRONINE FREE Routine 02/24/2025 1:43 PM EDT Elevated TSH FREE THYROXINE WITH REFLEX TO FREE TRIIODOTHYRONINE Routine 02/24/2025 1:43 PM EDT Elevated TSH THYROID STIMULATING HORMONE WITH REFLEX TO FREE T4 AND FREE T3 Routine 02/24/2025 1:43 PM EDT Elevated TSH LIPID PANEL WITH REFLEX TO DIRECT LDL [...] and free t3 (02/24/2025 1:43 PM EDT) TSH 4.05(H) 0.40 - 4.00 mcIU/mL LAB CHEMISTRY METHOD 02/24/2025 5:18 PM EDT [facility] Blood Venous blood specimen / Unknown Venipuncture / Unknown 02/24/2025 1:43 PM EDT 02/24/2025 1:43 PM EDT us Rosangela Ash SENIOR PACKAGING ENGINEER LAB BLOOD ORDERABLES Final R esult [facility] [address] [place] [address], [place] [phone] * Free thyroxine with reflex to free triiodothyronine (02/24/2025 1:43 PM EDT) Pathologist [facility] Free T4 0.92 0.70 - 1.80 ng/dL LAB CHEMISTRY METHOD 02/24/2025 6:20 PM EDT [facility] Blood Venous blood specimen / Unknown Venipuncture / Unknown 02/24/2025 1:43 PM EDT 02/24/2025 1:43 PM EDT Rosangela Ash SENIOR PACKAGING ENGINEER LAB BLOOD ORDERABLES Final R esult Performing Organization Address City/[facility]/ZIP Co de Phone Number [facility] [address] [place] [address], [place] [phone] * Triiodothyronine free (02/24/2025 1:43 PM EDT) [facility] T3, Free 271 230 - 420 pcg/dL LAB CHEMISTRY METHOD 02/24/2025 7:26 PM EDT [facility] Blood Venous blood specimen / Unknown Venipuncture / Unknown 02/24/2025 1:43 PM EDT 02/24/2025 1:43 PM EDT Rosangela Ash SENIOR PACKAGING ENGINEER LAB BLOOD ORDERABLES Final R esult Performing Organization Address [facility]/ZIP Co de Phone Number [facility] [address] [place] [address], [place] [phone] * (ABNORMAL) Lipid panel with reflex to direct LDL (12/30/2024 9:22 AM EDT) [facility] Cholesterol 189 0 - 200 mg/dL LAB CHEMISTRY METHOD 12/30/2024 1:44 PM EDT [facility] Triglycerides 104 0 - 150 mg/dL LAB CHEMISTRY METHOD 12/30/2024 1:44 PM EDT [facility] HDL 49 >=40 mg/dL LAB CHEMISTRY METHOD 12/30/2024 1:44 PM EDT [facility] LDL Calculated 119(H) 0 - 100 mg/dL LAB CHEMISTRY METHOD 12/30/2024 1:44 PM EDT [facility] VLDL Cholesterol César 20.8 mg/dL LAB CHEMISTRY METHOD 12/30/2024 1:44 PM EDT [facility] Non HDL Chol. (LDL+VLDL) 140 <145 mg/dL LAB CHEMISTRY METHOD 12/30/2024 1:44 PM EDT [facility] Chol/HDL Ratio 3.9 0.0 - 4.4 LAB CHEMISTRY METHOD 12/30/2024 1:44 PM EDT [facility] Blood Venous blood specimen / Unknown Venipuncture / Unknown 12/30/2024 9:22 AM EDT 12/30/2024 9:22 AM EDT us Rosangela Ash SENIOR PACKAGING ENGINEER LAB BLOOD ORDERABLES Final R esult [facility] [address] [place] [address], * COLONOSCOPY Anesthesia - MAC; [facility] ENDOSCOPY (05/10/2024 2:15 PM EST) Anatomical Region Laterality Modality Other 05/10/2024 2:02 PM EST Narrative 05/10/2024 2:17 PM EST [facility] GI Patient Name: Heriberto Maldonado Procedure Date: [...] or abscess without bleeding CPT copyright 2020 [employer]. All rights reserved. The codes documented in this report are preliminary and upon hvac residential service technician review may be revised to meet current compliance requirements. Joey Love MD Joey Love MD 05/10/2024 2:17:37 PM This report has been signed electronically.Joey Love MD Number of Addenda: 0 Note Initiated On: 05/10/2024 2:02 PM Scope In: Scope Out: Endoscopy Department at [facility] - [address] [place] [phone] Procedure Note Joey Love MD - 05/10/2024 [facility] GI Patient Name: Heriberto Maldonado Procedure Date: [...] or abscess without bleeding CPT copyright 2020 [employer]. All rights reserved. The codes documented in this report are preliminary and upon hvac residential service technician reviewmay be revised to meet current compliance requirements. Joey Love MD Joey Love MD 05/10/2024 2:17:37 PM This report has been signed electronically.Joey Love MD Number of Addenda: 0 Note Initiated On: 05/10/2024 2:02 PM Scope In: Scope Out: Endoscopy Department at [facility] - [address] [place] [phone] Joey Love MD GI~PROCEDURE ORDERABLES Final Re sult * Falls Risk Assessment (03/08/2024) Falls Risk Assessment abstracted Historical Provider HEALTH MAINTENANCE Final Result * Depression Screening (09/04/2023) Depression Screening abstracted Historical Provider HEALTH MAINTENANCE Final Result from Last 3 Months or Most Recently Relevant to Health Maintenance [facility] Care Teams Business Lawyer Relationship Specialty Start Date End Date Meg Monet MD [address] [place] [address] PCP - General 02/13/01
--- NOTE | 2025-04-18 09:39 | EEG_ITS ---
Reason for Exam:Transient global amnesia G45.4 Roomed Performed:?402 History: fatty liver, GERD, aortic regurgitation - Patient reports 2 episodes of transient memory loss and confusion lasting hours on 12/17/24 and 02/11/25. Patient was noted to keep repeating himself and to be spacey for 24 hours during these episodes. Patient reports still having some lingering memory issues. Last meal was this morning at 7 AM. Medication: docusate sodium, famotidine, fluticasone propionate, ibuprofen Technical description Photic stimulation: completed Hyperventilation:?omitted Behavioral state: cooperative State of Consciousness: awake Skull defect: none Sedation: none Handedness: right Duration of study:?32 min 20 sec Description: The waking background activity consists of a well-defined high voltage 10 hertz posterior alpha frequency that attenuates well with eye opening while low- voltage fast frequencies predominate anteriorly. Photic stimulation is without activation. Hyperventilation was omitted. No sleep stages are identified. Impression: This waking EEG is within normal limits [facility]
== END 2025-04-18 08:25 | disposition home or self-care (01) ==
LOC: HO.NEURO 08:24
PROVIDERS: PCP Internal Medicine; Visit Provider Psychiatry & Neurology Neurology
DX: G45.4 Transient global amnesia (principal)
CPT/HCPCS: 95816

== ENCOUNTER → 2025-04-18 09:39 | Outpatient (BNV) | payer MEDICARE, OTHER, SELFPAY | PROVIDERS: PCP Internal Medicine; Visit Provider Psychiatry & Neurology Neurology | DX: G45.4 Transient global amnesia (principal) | CPT/HCPCS: 95816 ==

== ENCOUNTER 2025-04-24 14:51 | Outpatient (REF) | payer MEDICARE, OTHER, SELFPAY ==
--- NOTE | ~2025-04-24 | MR_ITS ---
EXAMINATION: MR BRAIN WITHOUT CONTRAST CLINICAL INFORMATION: Transient global amnesia. G 45.4. COMPARISON: None available. TECHNIQUE: MRI of the brain was obtained using routine sequences without contrast. FINDINGS: No restricted diffusion. No acute intracranial hemorrhage, mass effect, midline shift, hydrocephalus or herniation. Bilateral multifocal patchy and punctate deep periventricular white matter hyperintense T2 FLAIR signal involving centrum semiovale and real radiata. Old lacunar infarcts, basal ganglia, real radiata white matter and right cerebellum. Prominence of the extra-axial CSF spaces cerebral sulci involving mostly the frontotemporal lobes. Asymmetric mild prominent right lateral ventricle likely congenital. Flow-void signal within the main cerebral vessels is normal. Craniocervical junction is intact with normal position of the cerebellar tonsils. Sellar/suprasellar region demonstrated no signal abnormality or gross masses. 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 Polypoid paranasal sinus disease. MR/MR head/brain wo con IMPRESSION: Small vessel occlusive disease. No acute stroke or acute brain abnormality. Bifrontal lobe and to a lesser extent bitemporal lobe atrophy. Electronically signed by: Neville Almeida MD 04/25/2025 09:07 AM EDT
--- OUTSIDE RECORDS SUMMARY | 2025-04-24 15:02 | XMS_ITS | Clinical Summary ---
Author Organization 175 [facility] Address [address] [place] [address] Phone Care Team Providers Care User Experience Analyst Name Role Phone Meg Monet MD Primary Care Provider [phone] Allergies Active Allergy Reactions Criticality Noted Date [...] atypical chest pain with nausea vomiting in [place] Leukopenia 10/29/2010 Seasonal allergies 12/12/2009 Benign neoplasm of colon 09/02/2005 Overview (03/25/2024): Tubular adenoma in 2009 External hemorrhoids 09/02/2005 Overview (03/25/2024): IMO update Esophageal reflux 09/02/2005 Peyronie's disease 09/02/2005 Tinnitus 09/02/2005 Overview (03/25/2024): Bilateral, left>right, on going, CT brain (-) 05/2013 for evaluation of syncope IMO update Encounters Date Type Department Care Team Description 04/07/2025 Telephone Adult Medicine [address] [phone] Meg Monet MD 04/04/2025 4:15 PM EDT Office Visit [address] [phone] Meg Monet MD Memory lapses (Primary Dx); Need for prophylactic vaccination and inoculation against influenza; Abnormal TSH; CKD (chronic kidney disease) stage 2, GFR 60-89 ml/min; Confusion; Amnesia 03/21/2025 10:00 AM EDT Office Visit [facility] [address] [phone] Santi Rogel, HAND III CUTTER Acute otitis media, unspecified otitis media type (Primary Dx) 02/24/2025 Telephone Adult Medicine [address] [phone] Meg Monet MD from Last 3 Months [...] 3 years; colonic adenoma COLONOSCOPY 06/20/09 PROCEDURE: [place] COLONOSCOPY STOMA DX INCLUDING COLLJ SPEC SPX; COMMENT: adenoma and hemorrhoids; repeat in three years COLONOSCOPY 08/26/12 PROCEDURE: [place] COLONOSCOPY STOMA DX INCLUDING COLLJ SPEC SPX; COMMENT: tics; repeat in 5 yrs COLONOSCOPY W/ BIOPSIES 02/27/2018 PROCEDURE: [place] COLONOSCOPY W/BIOPSY SINGLE/MULTIPLE; COMMENT: adenma and hyperplastic [...] Known Problems Maternal Grandmother Heart attack Mother [place] at age 67 No Known Problems Other [...] care for your loved ones. For example, professor of early childhood education or elderly care for an older adult? [...] 11:00 AM EST Office Visit Adult Medicine [facility] [place] [place] [address] [place] [address] Meg Monet MD [address] [place] [address] Health Maintenance Due Date Last Done Comments [...] this topic Medical Devices Implanted Type Area End Finder Twisting Department Device Identifier Shelf Expiration Date Model / [...] LAB CHEMISTRY METHOD 02/24/2025 5:18 PM EDT [facility] Blood Venous blood specimen / Unknown Venipuncture / Unknown 02/24/2025 1:43 PM EDT 02/24/2025 1:43 PM EDT us Rosangela Ash HAND III CUTTER LAB BLOOD ORDERABLES Final R esult [facility] [address] [place] [address], [place] [phone] * Free thyroxine with reflex to free triiodothyronine (02/24/2025 1:43 PM EDT) Pathologist [facility] Free T4 0.92 0.70 - 1.80 ng/dL LAB CHEMISTRY METHOD 02/24/2025 6:20 PM EDT [facility] Blood Venous blood specimen / Unknown Venipuncture / Unknown 02/24/2025 1:43 PM EDT 02/24/2025 1:43 PM EDT Rosangela Ash HAND III CUTTER LAB BLOOD ORDERABLES Final R esult Performing Organization Address City/[facility]/ZIP Co de Phone Number [facility] [address] [place] [address], [place] [phone] * Triiodothyronine free (02/24/2025 1:43 PM EDT) [facility] T3, Free 271 230 - 420 pcg/dL LAB CHEMISTRY METHOD 02/24/2025 7:26 PM EDT [facility] Blood Venous blood specimen / Unknown Venipuncture / Unknown 02/24/2025 1:43 PM EDT 02/24/2025 1:43 PM EDT Rosangela Ash HAND III CUTTER LAB BLOOD ORDERABLES Final R esult Performing Organization Address [facility]/ZIP Co de Phone Number [facility] [address] [place] [address], [place] [phone] * (ABNORMAL) Lipid panel with reflex to direct LDL (12/30/2024 9:22 AM EDT) [facility] Cholesterol 189 0 - 200 mg/dL LAB CHEMISTRY METHOD 12/30/2024 1:44 PM EDT [facility] Triglycerides 104 0 - 150 mg/dL LAB CHEMISTRY METHOD 12/30/2024 1:44 PM EDT [facility] HDL 49 >=40 mg/dL LAB CHEMISTRY METHOD 12/30/2024 1:44 PM EDT [facility] LDL Calculated 119(H) 0 - 100 mg/dL LAB CHEMISTRY METHOD 12/30/2024 1:44 PM EDT [facility] VLDL Cholesterol César 20.8 mg/dL LAB CHEMISTRY METHOD 12/30/2024 1:44 PM EDT [facility] Non HDL Chol. (LDL+VLDL) 140 <145 mg/dL LAB CHEMISTRY METHOD 12/30/2024 1:44 PM EDT [facility] Chol/HDL Ratio 3.9 0.0 - 4.4 LAB CHEMISTRY METHOD 12/30/2024 1:44 PM EDT [facility] Blood Venous blood specimen / Unknown Venipuncture / Unknown 12/30/2024 9:22 AM EDT 12/30/2024 9:22 AM EDT us Rosangela Ash HAND III CUTTER LAB BLOOD ORDERABLES Final R esult [facility] [address] [place] [address], * COL[facility] - MAC[facility] (05/10/2024 2:15 PM EST) Anatomical Region Laterality Modality Other 05/10/2024 2:02 PM EST Narrative 05/10/2024 2:17 PM EST [facility] GI Patient Name: Heriberto Maldonado Procedure [...] or abscess without bleeding CPT copyright 2020 [employer]. All rights reserved. The codes documented in this report are preliminary and upon ssis ssrs developer review may be revised to meet current compliance requirements. Joey Love MD Jeoy Love MD 05/10/2024 2:17:37 PM This report has been signed electronically.Joey Love MD Number of Addenda: 0 Note Initiated On: 05/10/2024 2:02 PM Scope In: Scope Out: Endoscopy Department at [facility] - [address] [place] [phone] Procedure Note Joey Love MD - 05/10/2024 [facility] GI Patient Name: Heriberto Maldonado Procedure [...] or abscess without bleeding CPT copyright 2020 [employer]. All rights reserved. The codes documented in this report are preliminary and upon ssis ssrs developer reviewmay be revised to meet current compliance requirements. Joey Love MD Joey Love MD 05/10/2024 2:17:37 PM This report has been signed electronically.Joey Love MD Number of Addenda: 0 Note Initiated On: 05/10/2024 2:02 PM Scope In: Scope Out: Endoscopy Department at [facility] - [address] [place] [phone] Joey Love MD GI~PROCEDURE ORDERABLES Final Re sult * Falls Risk Assessment (03/08/2024) Falls Risk Assessment abstracted Historical Provider HEALTH MAINTENANCE Final Result * Depression Screening (09/04/2023) Depression Screening abstracted Historical Provider HEALTH MAINTENANCE Final Result from Last 3 Months or Most Recently Relevant to Health Maintenance [facility] Care Teams User Experience Analyst Relationship Specialty Start Date End Date Meg Monet MD [address] [place] [address] PCP - General 02/13/01
== END 2025-04-24 14:52 | disposition home or self-care (01) ==
LOC: HO.MRI 14:51
PROVIDERS: PCP Internal Medicine; Visit Provider Psychiatry & Neurology Neurology
DX: G45.4 Transient global amnesia (principal)
CPT/HCPCS: 70551

== ENCOUNTER → 2025-04-24 14:51 | Outpatient (BNV) | payer MEDICARE, OTHER, SELFPAY | PROVIDERS: PCP Internal Medicine; Visit Provider Radiology Diagnostic Radiology | DX: I67.89 Other cerebrovascular disease (principal); G31.9 Degenerative disease of nervous system, unspecified | CPT/HCPCS: 70551 ==

== ENCOUNTER 2025-05-10 12:23 | Outpatient (AMB) | payer OTHER, MEDICARE, SELFPAY ==
--- NOTE | 2025-05-10 12:40 | MHC.OFFVIS ---
Intake Visit Reasons: 6 weeks Medication List - Last Reconciled 05/10/25 by Todd Fox MD docusate sodium 100 mg PO DAILY famotidine 20 mg PO BEDTIME fluticasone propionate 50 mcg/actuation (Flonase Allergy Relief) 1 spray intranasal DAILY ibuprofen 200 mg PO Q6H PRN HPI Comments Details: Another transient memory loss episode for several hours on 04/29/25 . Woke up with that confusion. Couldn't remember. He had two previous episodes of transient memory loss and confusion lasting hours on 12/17/24 and 02/11/25. 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 He also kept repeating himself. He acted somewhat spacey and then within 24 hours he was back to normal. He was seen in the emergency room had a negative CT scan of the head except for mild small bilateral hygromas and some atrophy which was age-related. 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 [facility], [facility] Medical History (Updated 05/10/25 @ 12:55 by Todd Fox MD) Fatty liver GERD (gastroesophageal reflux disease) Aortic regurgitation Review of Systems ENT Reports hearing loss Neuro Details: Two episodes of transient short-term memory loss and confusion Reports confusion Psych Reports confusion Physical Exam Const General: confusion Orientation/consciousness: confusion Neuro Other: ?Mini Mental Status Exam Level of Consciousness:?Alert.? Orientation:?Knows correct year, month, date, day and season.?Knows correct city, county and state. Knows correct location and floor.? Registration:?Able to register 3 objects.? Attention:?Serial 7's performed accurately.? Recall:?Able to recall 3 out of 3 objects.? Language:?Normal spontaneous speech, fluency, repetition, naming, comprehension, reading, and writing.? Total Score:?30/30.? Neurological Abnormal neurological findings:??none.? Mental Status:?Alert and oriented X 3.?Normal attention, orientation, memory, and affect.? Cranial Nerves:?Pupils are equal, round and reactive to light. Fundoscopy shows normal disc bilaterally. External occular muscles are intact. Visual haque are full, no ptosis. Face is symmetrical, no facial weakness or droop. Facial sensations are normal. Tongue protrudes in midline. Palate elevates symmetrically. Shoulder shrugging is normal.? Motor Examination:?Normal muscle tone, bulk and strength.?No atrophy or fasciculations.?No drift of the extended upper extremities.?Deep tendon reflexes are 2+.?Plantars are flexor.? Motor Strength:? Proximal Muscles (out of 5):?5 Distal Muscles (out of 5):?5 Neck Flexors (out of 5):?5 Neck Extensors (out of 5):?5 Deltoid (out of 5):?5 Biceps (out of 5):?5 Triceps (out of 5):?5 Serratus Anterior (out of 5):?5 Wrist Extensors (out of 5):?5 APB (out of 5):?5 Finger Spread (out of 5):?5 Ileopsoas (out of 5):?5 Quadriceps (out of 5):?5 Hamstrings (out of 5):?5 Tibialis Anterior (out of 5):?5 Peronei (out of 5):?5 EDB (out of 5):?5 Gastrocnemius (out of 5):?5 Straight Leg Raising:?90 degrees.? Sensory Exam:?Normal light touch, temperature, pinprick, vibration and joint-position sensations.?Rhomberg sign is absent.? Coordination:?No ataxia,?no titubation,?rpwndu-ln-kpxw, lvat-ujpp-dorb test, and rapid alternating movements were normal.? Gait Exam:?Within normal limits.? Cerebellar Signs:?Zjqmos-gd-zvfk and otre-hu-opax is normal.?No dysdiadochokinesia.? Extrapyramidal System:?No tremor or?rigidity, normal facial expressions.?No bradykinesia. No bradyphrenia. Normal arm swing and posture. No propulsion or retropulsion.? Speech:?Normal,?no dysphasia or dysarthria.? General Examination General: confusion Results Reviewed Results Reviewed: 04/19/25 EEG normal 04/24/25 Brain MRI : Mild bilateral microvascular multifocal patchy and punctate deep periventricular white matter hyperintense T2 FLAIR signal involving centrum semiovale. A few small punctate old lacunar infarcts, basal ganglia, real radiata white matter and right cerebellum. Prominence of the extra-axial CSF spaces cerebral sulci involving mostly the temporal > frontal lobes c/w atrophy. Assessment & Plan Assessment & Plan (1) MCI (mild cognitive impairment) with memory loss: Code(s): G31.84 - Mild cognitive impairment of uncertain or unknown etiology Category: Medical (2) Transient global amnesia: Code(s): G45.4 - Transient global amnesia Category: Medical Plan Start Donepezil and add Memantine in 2 months baseline MMSE and MOCA Medications: New donepezil 1 qd for 1 week then 2 qd 5 mg PO DAILY 30 tabs 4RF 30 days Coding Level of Care Code Est Pt Level 4 (43619) Diagnoses MCI (mild cognitive impairment) with memory loss G31.84 Transient global amnesia G45.4
--- OUTSIDE RECORDS SUMMARY | 2025-05-10 14:08 | XMS_ITS | Clinical Summary ---
Author Organization [address] [facility] Address [address] [place] [address] Phone Care Team Providers Care Barrel Filler Head Name Role Phone Meg Monet MD Primary Care Provider [phone] Allergies Active Allergy Reactions Criticality Noted Date [...] hours or as directed by MD. Active Active Problems Problem Noted Date Diagnosed Date [...] Care Team Description 04/07/2025 Telephone Adult Medicine [address] [phone] Meg Monet MD 04/04/2025 4:15 PM EDT Office Visit Adult Medicine [address] [phone] Meg Monet MD Memory lapses (Primary Dx); Need for prophylactic vaccination and inoculation against influenza; Abnormal TSH; CKD (chronic kidney disease) stage 2, GFR 60-89 ml/min; Confusion; Amnesia 03/21/2025 10:00 AM EDT Office Visit [facility] [address] [phone] Santi Rogel, [employer] Acute otitis media, unspecified otitis media type (Primary Dx) 02/24/2025 Telephone Adult [address] [phone] Meg Monet MD from Last 3 Months [...] 3 years; colonic adenoma COLONOSCOPY 06/20/09 PROCEDURE: PA COLONOSCOPY STOMA DX INCLUDING COLLJ SPEC SPX; COMMENT: adenoma and hemorrhoids; repeat in three years COLONOSCOPY 08/26/12 PROCEDURE: PA COLONOSCOPY STOMA DX INCLUDING COLLJ SPEC SPX; COMMENT: tics; repeat in 5 yrs COLONOSCOPY W/ BIOPSIES 02/27/2018 PROCEDURE: PA COLONOSCOPY W/BIOPSY SINGLE/MULTIPLE; COMMENT: adenma and hyperplastic [...] Known Problems Maternal Grandmother Heart attack Mother [place] at age 67 No Known Problems Other [...] for your loved ones. For example, child care assistant or elderly care for an older adult? [...] 11:00 AM EST Office Visit Adult Medicine [address] [phone] Meg Monet MD [address] [place] [address] Health Maintenance Due Date Last Done Comments [...] this topic Medical Devices Implanted Type Area Scutcher Tender Device Identifier Shelf Expiration Date Model / [...] LAB CHEMISTRY METHOD 02/24/2025 5:18 PM EDT [facility] Blood Venous blood specimen / Unknown Venipuncture / Unknown 02/24/2025 1:43 PM EDT 02/24/2025 1:43 PM EDT us Rosangela Ash NP LAB BLOOD ORDERABLES Final R esult [facility] [address] [place] [address], * Free thyroxine with reflex to free triiodothyronine (02/24/2025 1:43 PM EDT) Free T4 0.92 0.70 - 1.80 ng/dL LAB CHEMISTRY METHOD 02/24/2025 6:20 PM EDT [facility] Blood Venous blood specimen / Unknown Venipuncture / Unknown 02/24/2025 1:43 PM EDT 02/24/2025 1:43 PM EDT Rosangela Ash [employer] LAB BLOOD ORDERABLES Final R esult [facility] [address] [place] [address], [place] [phone] * Triiodothyronine free (02/24/2025 1:43 PM EDT) Pathologist [facility] T3, Free 271 230 - 420 pcg/dL LAB CHEMISTRY METHOD 02/24/2025 7:26 PM EDT [facility] Blood Venous blood specimen / Unknown Venipuncture / Unknown 02/24/2025 1:43 PM EDT 02/24/2025 1:43 PM EDT Rosanglea Ash [employer] LAB BLOOD ORDERABLES Final R esult Performing Organization Address City/[facility]/ZIP Co de Phone Number [facility] [address] [place] [address], [place] [phone] * (ABNORMAL) Lipid panel with reflex to direct LDL (12/30/2024 9:22 AM EDT) Pathologist [facility] Cholesterol 189 0 - 200 mg/dL LAB CHEMISTRY METHOD 12/30/2024 1:44 PM EDT [facility] Triglycerides 104 0 - 150 mg/dL LAB CHEMISTRY METHOD 12/30/2024 1:44 PM EDT [facility] HDL 49 >=40 mg/dL LAB CHEMISTRY METHOD 12/30/2024 1:44 PM EDT [facility] LDL Calculated 119(H) 0 - 100 mg/dL LAB CHEMISTRY METHOD 12/30/2024 1:44 PM EDT [facility] VLDL Cholesterol César 20.8 mg/dL LAB CHEMISTRY METHOD 12/30/2024 1:44 PM EDT [facility] Non HDL Chol. (LDL+VLDL) 140 <145 mg/dL LAB CHEMISTRY METHOD 12/30/2024 1:44 PM EDT [facility] Chol/HDL Ratio 3.9 0.0 - 4.4 LAB CHEMISTRY METHOD 12/30/2024 1:44 PM EDT [facility] Blood Venous blood specimen / Unknown Venipuncture / Unknown 12/30/2024 9:22 AM EDT 12/30/2024 9:22 AM EDT us Rosangela Ash [employer] LAB BLOOD ORDERABLES Final R esult [facility] [address] [place] [address], [place] [phone] * COLONOSCOPY Anesthesia - MAC; [facility] ENDOSCOPY (05/10/2024 2:15 PM EST) Anatomical Region Laterality Modality Other 05/10/2024 2:02 PM EST Narrative 05/10/2024 2:[address] [facility] Patient Name: Heriberto Maldonado [...] or abscess without bleeding CPT copyright 2020 [employer]. All rights reserved. The codes documented in this report are preliminary and upon hospital coder review may be revised to meet current compliance requirements. Joey Love MD Joey Love MD 05/10/2024 2:17:37 PM This report has been signed electronically.Joey Love MD Number of Addenda: 0 Note Initiated On: 05/10/2024 2:02 PM Scope In: Scope Out: Endoscopy Department at [facility] - [address] [place] [phone] Procedure Note Joey Love MD - 05/10/2024 [facility] GI Patient Name: Heriberto Maldonado [...] or abscess without bleeding CPT copyright 2020 [employer]. All rights reserved. The codes documented in this report are preliminary and upon hospital coder reviewmay be revised to meet current compliance requirements. Joey Love MD Joey Love MD 05/10/2024 2:17:37 PM This report has been signed electronically.Joey Love MD Number of Addenda: 0 Note Initiated On: 05/10/2024 2:02 PM Scope In: Scope Out: Endoscopy Department at [facility] - [address] [place] [phone] Joey Love MD GI~PROCEDURE ORDERABLES Final Re sult * Falls Risk Assessment (03/08/2024) Falls Risk Assessment abstracted Historical Provider HEALTH MAINTENANCE Final Result * Depression Screening (09/04/2023) Depression Screening abstracted Historical Provider HEALTH MAINTENANCE Final Result from Last 3 Months or Most Recently Relevant to Health Maintenance Insurance MEDICARE [employer] Care Teams Barrel Filler Head Relationship Specialty Start Date End Date Meg Monet MD [address] [place] [address] PCP - General 02/13/01
== END 2025-05-10 13:06 | disposition home or self-care (01) ==
LOC: HO.HSM 12:24
PROVIDERS: PCP Internal Medicine; Visit Provider Psychiatry & Neurology Neurology
DX: G31.84 Mild cognitive impairment of uncertain or unknown etiology (principal); G45.4 Transient global amnesia
CPT/HCPCS: 99214

== ENCOUNTER 2025-06-03 08:43 | Outpatient (AMB) | payer OTHER, MEDICARE, SELFPAY ==
--- NOTE | 2025-06-03 09:01 | A.OFFVIS_ITS ---
Intake Visit Reasons: Cognitive testing Allergies No Known Allergies Allergy (Verified 06/03/25 09:05) Medication List - Last Reconciled 06/03/25 by Shelly Mandujano CNP docusate sodium 100 mg PO DAILY donepezil 10 mg orally 1/2 tablet daily x1 week then 1 tablet daily; 90 days famotidine 20 mg PO BEDTIME fluticasone propionate 50 mcg/actuation (Flonase Allergy Relief) 1 spray intranasal DAILY ibuprofen 200 mg PO Q6H PRN HPI Comments Details: He was here today for cognitive testing with MMSE and MoCA. He has a Master's degree in clinical psychology. Had another transient memory loss episode for several hours on 04/29/25 . Woke up with that confusion. Couldn't remember. He had two previous episodes of transient memory loss and confusion lasting hours on 12/17/24 and 02/11/25. 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 He also kept repeating himself. He acted somewhat spacey and then within 24 hours he was back to normal. He was seen in the emergency room had a negative CT scan of the head except for mild small bilateral hygromas and some atrophy which was age-related. 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 [facility] Medical History (Updated 05/10/25 @ 12:55 by Todd Fox MD) Fatty liver GERD (gastroesophageal reflux disease) Aortic regurgitation Review of Systems ENT Reports hearing loss Neuro Details: Two episodes of transient short-term memory loss and confusion Physical Exam Neuro Other: Abnormal Neurological Findings:?MMSE 29/30, MoCA 23/30 with MIS 10/15. Mental Status: alert. Cranial Nerves: Pupils are equal, round, and reactive to light. External ocular muscles are intact. Visual haque are full, no ptosis. Face is symmetrical, no facial weakness or droop. Facial sensations are normal. Tongue protrudes in midline. Palate elevates symmetrically. Shoulder shrugging is normal. Coordination: No ataxia. No titubation. Gait Exam: Within normal limits. Extrapyramidal System: No tremor, rigidity with normal facial expressions. No br adykinesia. No bradyphrenia. Normal arm swing and posture. No propulsion or retropulsion. Speech: Normal. Assessment & Plan Assessment & Plan (1) MCI (mild cognitive impairment) with memory loss: Code(s): G31.84 - Mild cognitive impairment of uncertain or unknown etiology Category: Medical (2) Transient global amnesia: Code(s): G45.4 - Transient global amnesia Category: Medical Plan Continue donepezil. Follow up as previously scheduled or sooner as needed. Coding Level of Care Code Est Pt Level 3 (11403) Diagnoses MCI (mild cognitive impairment) with memory loss G31.84 Transient global amnesia G45.4
== END 2025-06-03 09:30 | disposition home or self-care (01) ==
LOC: HO.HSM 08:44
PROVIDERS: PCP Internal Medicine; Visit Provider Registered Nurse
DX: G31.84 Mild cognitive impairment of uncertain or unknown etiology (principal); G45.4 Transient global amnesia
CPT/HCPCS: 99213